=== PATIENT | female | born 1980 | race African-American/Black ===

== ENCOUNTER 2019-06-18 00:18 | Emergency (ER) | payer SELFPAY ==
[~2019-06-18] VITALS: Ht 172.7 cm; Wt 73.0 kg
[2019-06-18 01:11] LABS: BASOPHILS % 0.5 % (0.0-2.0); EOSINOPHILS % 0.5 % (0.0-5.0); HEMATOCRIT. 35.7 % (36.0-48.0); HEMOGLOBIN. 12.3 g/dL (12.0-16.0); LYMPHOCYTES % 30.1 % (20.0-50.0); MEAN CORPUSCULAR HEMOGLOBIN 31.4 pg (28.0-32.0); MEAN CORPUSCULAR VOLUME 90.8 fL (81.0-99.0); MEAN PLATELET VOLUME 8.5 fl (7.4-10.4); MONOCYTES % 6.4 % (2.0-8.0); NEUTROPHILS % 62.5 % (40.0-76.0); PLATELET 186 x1000/uL (130-400); RED BLOOD CELL COUNT 3.93 mill/uL (4.2-5.4); RED CELL DISTRIBUTION WIDTH 12.5 % (11.6-14.6)
[2019-06-18 01:18] LABS: CHLORIDE 108 mEq/L (98-107)
[2019-06-18 02:59] VITALS: BP 165/100
== END 2019-06-18 03:00 | disposition home or self-care (01) ==
LOC: ER 00:18
DX: I10 Essential (primary) hypertension (principal); E87.6 Hypokalemia
CPT/HCPCS: 36415; 81025; 93005; 99284

== ENCOUNTER 2022-10-01 22:00 | Emergency (ER) | payer SELFPAY ==
[~2022-10-01] VITALS: Ht 167.6 cm; Wt 81.0 kg
[2022-10-01] MEDS ORDERED: SODIUM CHLORIDE 0.9% 1,000 ML IV ONE (22:45)
[2022-10-01 23:00] LABS: BASOPHILS % 0.3 % (0.0-2.0); EOSINOPHILS % 0.2 % (0.0-5.0); HEMOGLOBIN. 12.8 g/dL (12.0-16.0); LYMPHOCYTES % 20.3 % (20.0-50.0); MEAN CORPUSCULAR HEMOGLOBIN 30.7 pg (28.0-32.0); MEAN CORPUSCULAR VOLUME 91.1 fL (81.0-99.0); MEAN PLATELET VOLUME 8.1 fl (7.4-10.4); NEUTROPHILS % 73.2 % (40.0-76.0); PLATELET 219 x1000/uL (130-400); RED BLOOD CELL COUNT 4.17 mill/uL (4.2-5.4)
[2022-10-01 23:08] LABS: CHLORIDE 108 mEq/L (98-107)
[2022-10-01 23:14] LABS: CLARITY URINE CLEAR (CLEAR); COLOR URINE YELLOW (YELLOW); KETONES URINE NEGATIVE (NEGATIVE); LEUKOCYTE ESTERASE URINE TRACE (NEGATIVE); NITRITE URINE NEGATIVE (NEGATIVE); OCCULT BLOOD URINE TRACE (NEGATIVE); PH URINE 6.5 (4.5-8.0); PROTEIN URINE NEGATIVE (NEGATIVE); SPECIFIC GRAVITY URINE 1.003 (1.005-1.030); UROBILINOGEN URINE 0.2 E.U./dL (0.2-1.0)
[2022-10-02 01:05] VITALS: BP 130/78
== END 2022-10-02 00:53 | disposition home or self-care (01) ==
LOC: ER 22:18
DX: R73.9 Hyperglycemia, unspecified (principal); E86.0 Dehydration; R00.0 Tachycardia, unspecified; R53.1 Weakness; I10 Essential (primary) hypertension; F41.9 Anxiety disorder, unspecified
CPT/HCPCS: 36415; 80053; 81003; 81025; 83605; 85025; 96360; 99283; J7030